=== PATIENT | male | born 1945 | race American Indian/Alaskan Native ===

== ENCOUNTER 2021-01-14 01:47 | Emergency (ER) | payer MEDICARE ==
[2021-01-14 03:11] LABS: Bilirubin,Urine NEG (Negative); Blood,Urine LG (Negative); Color,Urine Yellow (Yellow); Hyaline Casts,Urine 5 /LPF; Mucus,Urine FEW /HPF; Urobilinogen,Urine < 2.0 mg/dL (<2.0)
[2021-01-14 03:15] LABS: RBC,Urine > 182.0 /HPF (0.0-6.0)
--- NOTE | 2021-01-14 09:21 | Emergency Department Report ---
ED General Adult HPI - General Chief complaint: Urogenital-Male Stated complaint: UNABLE TO URINATE Time Seen by Provider: 01/14/21 09:02 Source: patient Mode of arrival: Ambulatory Limitations: No Limitations - History of Present Illness Initial comments: 75-year-old -[place] male with history of diabetes presents with complaints of not being able to urinate starting yesterday morning. Patient states he had a prostate biopsy performed 01/08/[address] Camejo, urology. He denies any other complications with the biopsy. He states he has been having dysuria, but denies any hematuria or fever/chills/sweats. Patient states he initially had some abdominal pain that has now resolved with the Espino catheter insertion and urine drainage. Patient states he is otherwise feeling fine. -: Sudden - Related Data Previous Rx's Medication Instructions Recorded Last Taken Type Sulfamethoxazole/Trimethoprim 1 each PO BID 5 Days #10 tablet 01/14/21 Unknown Rx [Bactrim DS TAB] Allergies Allergy/AdvReac Type Severity Reaction Status Date / Time No Known Allergies Allergy Unverified 01/14/21 01:56 ED Review of Systems ROS: Stated complaint: UNABLE TO URINATE Other details as noted in HPI Constitutional: denies: chills, diaphoresis, fever, malaise, weakness Gastrointestinal: as per HPI. denies: nausea, vomiting, diarrhea, constipation Genitourinary: dysuria. denies: frequency, hematuria Hematological/Lymphatic: denies: swollen glands ED Past Medical Hx - Past Medical History Hx Diabetes: Yes - Surgical History Additional Surgical History: prostate biopsy, GSw to abd - Social History Smoking Status: Never Smoker Substance Use Type: None - Medications Home Medications: Home Medications Medication Instructions Recorded Confirmed Last Taken Type Sulfamethoxazole/Trimethoprim 1 each PO BID 5 Days #10 tablet 01/14/21 Unknown Rx [Bactrim DS TAB] ED Physical Exam - General Limitations: No Limitations General appearance: alert, in no apparent distress - Head Head exam: Present: atraumatic, normocephalic - Eye Eye exam: Present: normal appearance. Absent: scleral icterus - Respiratory Respiratory exam: Present: normal lung sounds bilaterally. Absent: respiratory distress - Cardiovascular Cardiovascular Exam: Present: regular rate, normal rhythm - GI/Abdominal GI/Abdominal exam: Present: soft, normal bowel sounds. Absent: distended, tenderness, guarding, rebound, rigid - Back Exam Back exam: Present: full ROM. Absent: CVA tenderness (L) - Neurological Exam Neurological exam: Present: alert, oriented X3 - Psychiatric Psychiatric exam: Present: normal affect, normal mood - Skin Skin exam: Present: warm, dry, intact, normal color. Absent: rash ED Course Vital Signs 01/14/21 01/14/21 01:56 10:31 Temperature 98.2 F Pulse Rate 87 97 H Respiratory 18 18 Rate Blood Pressure 126/77 Blood Pressure 129/72 [Left] O2 Sat by Pulse 99 97 Oximetry ED Medical Decision Making - Medical Decision Making 75-year-old -Sy[place] male with history of diabetes presents with complaints of not being able to urinate starting yesterday morning. Patient states he had a prostate biopsy performed 01/08/[address] Camejo, urology. He denies any other complications with the biopsy. He states he has been having dysuria, but denies any hematuria or fever/chills/sweats. Patient states he initially had some abdominal pain that has now resolved with the Espino catheter insertion and urine drainage. Patient states he is otherwise feeling fine. UA shows 14 WBCs. Patient denies current antibiotic use. Culture pending. No tenderness to palpation of abdomen on exam. Patient denies any testicular pain or swelling. Discussed patient with Dr. Pendleton. Will leave indwelling catheter in place and patient to follow-up with his urologist today. Bactrim given for UTI. Discussed signs and symptoms that should prompt immediate return to the emergency department in detail with patient who verbalizes understanding. Critical care attestation.: If time is entered above; I have spent that time in minutes in the direct care of this critically ill patient, excluding procedure time. ED Disposition Clinical Impression: Urinary retention, UTI (urinary tract infection) Disposition: - TO HOME OR SELFCARE Is pt being admited?: No Condition: Stable Instructions: Urinary Tract Infection, Adult, [id number], Acute Urinary Retention, Male Prescriptions: Sulfamethoxazole/Trimethoprim [Bactrim DS TAB] 1 each PO BID 5 Days #10 tablet Referrals: JIAN CAMEJO MD [Staff Physician] - [facility]
[2021-01-14 10:31] VITALS: BP 129/72
== END 2021-01-14 10:38 | disposition home or self-care (01) ==
LOC: ED 01:47
DX: N39.0 Urinary tract infection, site not specified (principal); R33.9 Retention of urine, unspecified; E11.9 Type 2 diabetes mellitus without complications; Z98.890 Other specified postprocedural states; Z79.899 Other long term (current) drug therapy
CPT/HCPCS: 81001; 87086

== ENCOUNTER 2021-01-22 16:09 | Emergency (ER) | payer MEDICARE ==
[2021-01-22 16:45] VITALS: BP 154/86
[2021-01-22] MEDS ORDERED: DEXTROSE 50% IN WATER (25GM) 50 ML SYRINGE IV ONE ×2 (17:09→17:11)
--- NOTE | 2021-01-22 18:17 | Emergency Department Report ---
ED Male HPI - General Chief complaint: Urogenital-Male Stated complaint: PROBLEM URINING Time Seen by Provider: 01/22/21 18:01 Source: patient, EMS Mode of arrival: Wheelchair Limitations: No Limitations - History of Present Illness Initial comments: Patient is a 75-year-old male that presents emergency room with complaints of urinary retention. Patient states that his symptoms started today. Patient states he was at his urologist office and had his last Espino removed and a biopsy done and he has not urinated since. Patient states it took place at 9 AM this morning. Patient states his discomfort is a 2 out of 10. Patient states his pain is better with rest and worse with movement. Patient denies fever and chills. Patient denies nausea vomiting. Patient denies recent travel. Patient denies recent international travel. Patient denies exposure to the novel coronavirus. Patient denies sick contacts. Patient denies fever and chills. Patient denies cough. Patient denies diarrhea. Patient denies coming in contact with anybody with symptoms of the novel coronavirus. Complaint: other -: Sudden Severity: mild, moderate Severity scale (0 -10): 2 Quality: aching Improves with: rest Worsens with: movement denies other symptoms - Related Data Sexually active: No Previous Rx's Medication Instructions Recorded Last Taken Type Sulfamethoxazole/Trimethoprim 1 each PO BID 10 Days #20 tablet 01/22/21 Unknown Rx [Bactrim DS TAB] Allergies Allergy/AdvReac Type Severity Reaction Status Date / Time No Known Allergies Allergy Unverified 01/14/21 01:56 ED Review of Systems ROS: Stated complaint: PROBLEM URINING Other details as noted in HPI Constitutional: denies: chills, fever Eyes: denies: eye pain, eye discharge, vision change ENT: denies: ear pain, throat pain Respiratory: denies: cough, shortness of breath, wheezing Cardiovascular: denies: chest pain, palpitations Endocrine: no symptoms reported Gastrointestinal: denies: abdominal pain, nausea, diarrhea Genitourinary: as per HPI. denies: urgency, dysuria Musculoskeletal: denies: back pain, joint swelling, arthralgia Skin: denies: rash, lesions Neurological: denies: headache, weakness, paresthesias Psychiatric: denies: anxiety, depression Hematological/Lymphatic: denies: easy bleeding, easy bruising ED Past Medical Hx - Past Medical History Previous Medical History?: Yes Hx Diabetes: Yes - Surgical History Past Surgical History?: Yes Additional Surgical History: prostate biopsy, GSw to abd - Family History Family history: no significant - Social History Smoking Status: Never Smoker Substance Use Type: None - Medications Home Medications: Home Medications Medication Instructions Recorded Confirmed Last Taken Type Sulfamethoxazole/Trimethoprim 1 each PO BID 10 Days #20 tablet 01/22/21 Unknown Rx [Bactrim DS TAB] ED Physical Exam - General Limitations: No Limitations General appearance: alert, in no apparent distress - Head Head exam: Present: atraumatic, normocephalic - Eye Eye exam: Present: normal appearance - ENT ENT exam: Present: mucous membranes moist - Neck Neck exam: Present: normal inspection - Respiratory Respiratory exam: Present: normal lung sounds bilaterally. Absent: respiratory distress - Cardiovascular Cardiovascular Exam: Present: regular rate, normal rhythm. Absent: systolic murmur, diastolic murmur, rubs, gallop - GI/Abdominal GI/Abdominal exam: Present: soft, normal bowel sounds - Rectal Rectal exam: Present: deferred - Extremities Exam Extremities exam: Present: normal inspection - Back Exam Back exam: Present: normal inspection - Neurological Exam Neurological exam: Present: alert, oriented X3 - Psychiatric Psychiatric exam: Present: normal affect, normal mood - Skin Skin exam: Present: warm, dry, intact, normal color. Absent: rash ED Course Vital Signs 01/22/21 16:42 Temperature 98.1 F Pulse Rate 102 H Respiratory 20 Rate Blood Pressure 154/86 O2 Sat by Pulse 99 Oximetry - Reevaluation(s) Reevaluation #1: Patient's had a Espino placed and is feeling much better. 01/22/21 18:15 Reevaluation #2: I discussed all results and clinical findings with patient. I discussed plan of care with patient. Patient agrees with plan of care. Patient is stable for discharge. Patient will be discharged home. Patient given discharge instructions. Patient voiced understanding of discharge instructions. 01/22/21 19:04 ED Medical Decision Making - Medical Decision Making Patient is a 75-year-old male presents emergency room with complaints of lower abdominal pain. Patient complains of urinary retention. Patient's urinary retention started at 9 AM when the urologist removed his Espino. Patient states he has not urinated since. Patient had a Espino placed and his symptoms dramatically improved. Patient denies pain after appointment. Patient had urine done which showed UTI. Patient treated with antibiotics. Patient does not require further emergency medical services or inpatient services. Patient stable for discharge. Patient discharged home with the Espino in place. Patient given full instructions. Patient will need to follow-up with urologist as possible. Critical care time documented due to the multiple reassessments, prolonged time at the bedside, interpretation of diagnostics and labs. - Differential Diagnosis UTI, prostatitis, urinary retention, Critical Care Time: Yes Critical care time in (mins) excluding proc time.: 35 Critical care attestation.: If time is entered above; I have spent that time in minutes in the direct care of this critically ill patient, excluding procedure time. Critical Care Time: 35 minutes ED Disposition Clinical Impression: Urinary retention UTI (urinary tract infection) Qualifiers: Urinary tract infection type: acute cystitis Hematuria presence: with hematuria Qualified Code(s): N30.01 - Acute cystitis with hematuria Disposition: TO HOME OR SELFCARE Is pt being admited?: No Does the pt Need Aspirin: No Condition: Stable Instructions: Urinary Tract Infection, Adult, [id number], Indwelling Urinary Catheter Care, Adult, Bech-yi-Ihub, Acute Urinary Retention, Male, [id number] Additional Instructions: Patient to follow-up with primary care in 2 to 3 days. Patient to follow-up with urologist in 2 to 3 days. Patient to keep Espino in until removed by urologist. Patient to rest. Patient to increase water. Patient to avoid strenuous exercise or heavy lifting until cleared by neurologist and primary care. Patient to take Tylenol or ibuprofen as needed for pain. Patient to take meds as directed. Patient to return to the ER if condition worsens, changes or new symptoms arise. Prescriptions: Sulfamethoxazole/Trimethoprim [Bactrim DS TAB] 1 each PO BID 10 Days #20 tablet Referrals: MARY BETH CHAMBERS MD [Staff Physician] - 2-3 Days Time of Disposition: 19:06
[2021-01-22 18:52] LABS: Bacteria,Urine 1+ /HPF (Negative); Bilirubin,Urine NEG (Negative); Blood,Urine LG (Negative); Color,Urine Yellow (Yellow); Mucus,Urine FEW /HPF; Protein,Urine <15 mg/dL mg/dL (Negative); Urobilinogen,Urine < 2.0 mg/dL (<2.0)
== END 2021-01-22 19:57 | disposition home or self-care (01) ==
LOC: ED 16:09
DX: N39.0 Urinary tract infection, site not specified (principal); R33.9 Retention of urine, unspecified; E11.9 Type 2 diabetes mellitus without complications; Z98.890 Other specified postprocedural states; Z79.899 Other long term (current) drug therapy
CPT/HCPCS: 51702; 81001; 87076; 87086; 87186

== ENCOUNTER 2021-06-12 05:59 | Emergency (ER) | payer MEDICARE ==
[2021-06-12] MEDS ORDERED: LIDOCAINE 2% UROJECT 10 ML JELLY UR ONE (06:15)
[2021-06-12] MEDS ORDERED: fentaNYL 100 MCG/2 ML INJ IV ONE (06:29)
--- NOTE | 2021-06-12 06:29 | Emergency Department Report ---
ED Male HPI - General Stated complaint: UNABLE TO URINATE Time Seen by Provider: 06/12/21 06:06 - History of Present Illness Initial comments: Patient was brought in by ambulance for low abdominal pain. Patient states that his Espino catheter came out 2 days ago and is not been able to void. His catheter got caught up in his clothes and got pulled out. He is complaining of sharp stabbing lower abdominal pain. The pain does not radiate or migrate. It is constant. The pain seems to be worse with movement and palpation over the lower abdomen. He feels as though he needs to urinate and cannot. There have been no fevers or chills. He has had no trauma. - Related Data Previous Rx's Medication Instructions Recorded Last Taken Type cephALEXin [Keflex] 500 mg PO Q8HR #20 cap 06/12/21 Unknown Rx Allergies Allergy/AdvReac Type Severity Reaction Status Date / Time No Known Allergies Allergy Unverified 01/14/21 01:56 ED Review of Systems ROS: Stated complaint: UNABLE TO URINATE Other details as noted in HPI Comment: All other systems reviewed and negative Constitutional: denies: fever Eyes: denies: vision change ENT: denies: throat pain Respiratory: denies: cough Cardiovascular: denies: chest pain Endocrine: denies: unexplained weight loss Gastrointestinal: as per HPI Genitourinary: as per HPI Musculoskeletal: denies: back pain Skin: denies: rash Neurological: denies: headache Hematological/Lymphatic: denies: easy bruising ED Past Medical Hx - Past Medical History Hx Diabetes: Yes Additional medical history: Chronic indwelling Espino - Surgical History Additional Surgical History: prostate biopsy, GSw to abd - Family History Family history: diabetes - Social History Smoking Status: Never Smoker Substance Use Type: None - Medications Home Medications: Home Medications Medication Instructions Recorded Confirmed Last Taken Type cephALEXin [Keflex] 500 mg PO Q8HR #20 cap 06/12/21 Unknown Rx ED Physical Exam - General Limitations: No Limitations, Other ( pulse ox noted and normal) General appearance: alert, in distress ( moderate discomfort) - Head Head exam: Present: atraumatic, normocephalic, normal inspection - Eye Eye exam: Present: EOMI. Absent: scleral icterus - ENT ENT exam: Present: normal exam, mucous membranes moist, normal external ear exam - Neck Neck exam: Present: normal inspection. Absent: meningismus - Respiratory Respiratory exam: Present: normal lung sounds bilaterally. Absent: respiratory distress - Cardiovascular Cardiovascular Exam: Present: regular rate, normal rhythm - GI/Abdominal GI/Abdominal exam: Present: soft, tenderness ( suprapubic), mass ( lower abdomen consistent with distended bladder) - Extremities Exam Extremities exam: Present: normal capillary refill. Absent: pedal edema - Back Exam Back exam: Absent: CVA tenderness (R), CVA tenderness (L) - Neurological Exam Neurological exam: Present: alert, oriented X3, CN II-XII intact. Absent: motor sensory deficit - Psychiatric Psychiatric exam: Present: normal affect, normal mood - Skin Skin exam: Present: warm, dry ED Course Vital Signs 06/12/21 06/12/21 06/12/21 06:20 06:34 06:46 Temperature 98.2 F Pulse Rate 74 Respiratory 18 Rate Blood Pressure 133/74 Blood Pressure 133/74 [Right] O2 Sat by Pulse 97 97 98 Oximetry 06/12/21 06/12/21 06/12/21 07:00 07:16 07:30 Temperature Pulse Rate Respiratory Rate Blood Pressure 133/74 126/62 126/62 Blood Pressure [Right] O2 Sat by Pulse 98 99 99 Oximetry 06/12/21 06/12/21 06/12/21 07:46 08:00 08:16 Temperature Pulse Rate Respiratory Rate Blood Pressure 127/61 127/61 141/92 Blood Pressure [Right] O2 Sat by Pulse 98 97 98 Oximetry 06/12/21 06/12/21 06/12/21 08:30 08:33 09:00 Temperature Pulse Rate Respiratory Rate Blood Pressure 141/92 131/71 Blood Pressure [Right] O2 Sat by Pulse 98 100 Oximetry - Reevaluation(s) Reevaluation #1: 06/12/21 06:29 0620-Fentanyl and labs were ordered. Old records reviewed. Espino catheter will be replaced. Reevaluation #2: 06/12/21 09:23 Labs are noted and the patient was discharged ED Medical Decision Making - Lab Data Result diagrams: 06/12/21 06:59 06/12/21 06:59 - Medical Decision Making patient presented secondary to urinary retention. His Espino catheter has been withdrawn by accident. At this time, he was treated symptomatically. He does have evidence of urinary tract infection and was started on antibiotics empirically. He does not have CVA tenderness to suggest pyelonephritis. He does not appear to be tachycardic or hypotensive. I do not believe he has severe sepsis or septic shock. Patient does not have any worsening renal function at this time and was discharged with outpatient referral. Critical Care Time: No Critical care attestation.: If time is entered above; I have spent that time in minutes in the direct care of this critically ill patient, excluding procedure time. ED Disposition Clinical Impression: Lower abdominal pain, Urinary retention, Encounter for Espino catheter replacement UTI (urinary tract infection) Qualifiers: Urinary tract infection type: acute cystitis Hematuria presence: without hematuria Qualified Code(s): N30.00 - Acute cystitis without hematuria Disposition: HOME / SELF CARE / HOMELESS Is pt being admited?: No Condition: Stable Instructions: Antibiotic Medicine, Adult, Urinary Tract Infection, Adult, Acute Urinary Retention, Male, [id number] Additional Instructions: Drink plenty of water. Take the antibiotics. See your urologist for recheck. Return for problems or concerns. Prescriptions: cephALEXin [Keflex] 500 mg PO Q8HR #20 cap Referrals: PRIMARY MD RYAN [Primary Care Provider] - 3-5 Days HOWIE VANN MD [Staff Physician] - 3-5 Days
[2021-06-12 08:01] LABS: Hematocrit 30.4 % (35.5-45.6); Hemoglobin 9.9 gm/dl (11.8-15.2); Mean Corpuscular HGB Conc 33 % (32-34); Mean Corpuscular Volume 95 fl (84-94); Platelet Count 287 K/mm3 (140-440); Red Cell Distribution Width 13.8 % (13.2-15.2)
[2021-06-12 08:24] LABS: BUN/Creatinine Ratio 21; Blood Urea Nitrogen 25 mg/dL (9-20); Calcium 8.7 mg/dL (8.4-10.2); Hemolysis Index 4
[2021-06-12 08:56] LABS: Bilirubin,Urine NEG (Negative); Blood,Urine SM (Negative); Color,Urine Amber (Yellow); Mucus,Urine FEW /HPF
[2021-06-12 09:22] VITALS: BP 131/71
== END 2021-06-12 09:57 | disposition home or self-care (01) ==
LOC: ED 05:59
DX: N30.00 Acute cystitis without hematuria (principal); R10.30 Lower abdominal pain, unspecified; R33.9 Retention of urine, unspecified; Z46.6 Encounter for fitting and adjustment of urinary device
CPT/HCPCS: 36415; 51702; 80048; 81001; 85027; 87086; 96374; 99284; J3010